=== PATIENT | female | born 1995 | race Caucasian/White ===

== ENCOUNTER → 2022-02-02 | Outpatient (CLI) | payer OTHER, SELFPAY ==
[2022-02-02 12:08] LABS: Absolute Lymphocyte Count 2.19 X10^3/uL (0.83-4.51); Absolute Neutrophil Count 5.7 X10^3/uL (2.0-7.7); Basophil# 0.02 X10^3/uL; Basophil% 0.2 % (0-1); Eosinophil# 0.06 X10^3/uL; Eosinophils% 0.7 % (0-5); Hematocrit 39.2 % (37-47); Lymphocyte # 2.19 X10^3/ul (0.83-4.51); Lymphocyte % 26.1 % (19-41); Mean Corp Hgb Conc 33.2 g/dL (32-36); Mean Corpuscular Hgb 29.4 pg (27.0-32.0); Mean Corpuscular Volume 88.7 fL (81-99); Mean Platelet Vol. 10.8 fl (6.2-12.0); Monocyte# 0.41 X10^3/uL; Monocyte% 4.9 % (0-10); NRBC Flagged by Analyzer 0 % (0-5); Neutrophil # 5.67 X10^3/uL (2.7-7.7); Neutrophil % 67.7 % (47-70); Platelet Count 235 K/mm3 (150-450); RBC Distribution Width CV 12.5 % (11.6-14.6); RBC Distribution Width SD 40.6 fl (35.1-43.9); Red Blood Count 4.42 M/mm3 (4.2-5.4); White Blood Count 8.4 K/mm3 (4.4-11.0)
[2022-02-02 15:00] LABS: HIV - WCH Non-Reactive (Nonreactive); Hepatitis B Surface Antigen Non-Reactive (Nonreactive); Hepatitis C Antibody Non-Reactive (Nonreactive); Rubella IgG Reactive (Nonreactive); Syphilis Antibodies Non-reactive
[2022-02-03 16:05] LABS: V-Zoster IgG (Immunity) 1080 index (Immune >165)
[2022-02-03 21:07] LABS: Chlamydia By Nucleic Acid AMP Negative (Negative)
[2022-02-04 11:26] LABS: Gonococcus By Nucleic Acid AMP Negative (Negative)
[2022-02-10 13:32] LABS: HPV Reflexed? NOT INDICATED
== END | disposition home or self-care (01) ==
LOC: WOBLAB 10:51
PROVIDERS: Visit Provider Obstetrics & Gynecology
DX: Z34.83 Encounter for supervision of other normal pregnancy, third trimester (principal); Z12.4 Encounter for screening for malignant neoplasm of cervix; Z11.3 Encounter for screening for infections with a predominantly sexual mode of transmission
CPT/HCPCS: 36415; 85025; 86703; 86762; 86780; 86787; 86803; 87086; 87340; 87491; 87591; 88175; G0145

== ENCOUNTER → 2022-04-29 | Outpatient (CLI) | payer OTHER, SELFPAY ==
[2022-04-29 11:13] LABS: Absolute Lymphocyte Count 1.63 X10^3/uL (0.83-4.51); Absolute Neutrophil Count 5.5 X10^3/uL (2.0-7.7); Basophil# 0.02 X10^3/uL; Basophil% 0.3 % (0-1); Eosinophil# 0.04 X10^3/uL; Eosinophils% 0.5 % (0-5); Hematocrit 35.5 % (37-47); Lymphocyte # 1.63 X10^3/ul (0.83-4.51); Lymphocyte % 21.4 % (19-41); Mean Corp Hgb Conc 33.8 g/dL (32-36); Mean Corpuscular Hgb 30.5 pg (27.0-32.0); Mean Corpuscular Volume 90.3 fL (81-99); Monocyte# 0.38 X10^3/uL; NRBC Flagged by Analyzer 0 % (0-5); Neutrophil # 5.52 X10^3/uL (2.7-7.7); Neutrophil % 72.5 % (47-70); Platelet Count 198 K/mm3 (150-450); RBC Distribution Width CV 12.6 % (11.6-14.6); RBC Distribution Width SD 41.5 fl (35.1-43.9); Red Blood Count 3.93 M/mm3 (4.2-5.4); White Blood Count 7.6 K/mm3 (4.4-11.0)
[2022-04-29 11:33] LABS: Glucose Challenge Gest 1H 50g 100 mg/dL (70-140)
== END | disposition home or self-care (01) ==
LOC: WOBLAB 09:40
PROVIDERS: Visit Provider Obstetrics & Gynecology
DX: Z34.82 Encounter for supervision of other normal pregnancy, second trimester (principal)
CPT/HCPCS: 36415; 82950; 85025

== ENCOUNTER → 2022-05-20 | Outpatient (CLI) | payer OTHER, SELFPAY | END | disposition home or self-care (01) | PROVIDERS: Visit Provider Obstetrics & Gynecology | DX: Z34.83 Encounter for supervision of other normal pregnancy, third trimester (principal) | CPT/HCPCS: 36415; 86850 ==

== ENCOUNTER 2022-07-07 17:20 | Outpatient (CLI) | payer OTHER, SELFPAY ==
[2022-07-07 17:33] VITALS: BP 120/77; PULSE 105; TEMP 36.7
[2022-07-07 17:40] VITALS: BMI 30.4
[2022-07-07] MEDS: Betamethasone/Betamethasone 30 MG/5 ML Vial 12 MG IM (18:47)
--- NOTE | 2022-07-07 19:23 | PCM.HP.BLA ---
History and Physical Date of Admission: 07/07/22 Chief complaint: Decreased movement History present illness: 26-year-old living 2 at 36 weeks and 1 day with JULIET 08/03/2022 arrives with decreased movement. Patient feels regular movements but they are less strong than previous. Denies headache, vision change, chest pain, shortness of breath, nausea vomit, right upper quadrant pain. is complicated by IUGR, history of section Obstetric history: G1: Primary section twins 37 weeks G2: Current Past medical history: None Medications: vitamin Past surgical history: section, colonoscopy Allergies: No known drug allergies Social history: Denies smoking, alcohol use, drug use Family history: Denies history DVT or PE Review of systems: Besides above pertinent positives a full review of systems was performed and found to be negative Physical exam: Vitals: Blood pressure 120/77 pulse 105 temperature 98.0 ?F General: Normal-appearing no acute distress HEENT: Normocephalic/atraumatic no cervical lymphadenopathy Cardiac/respiratory: No successor muscles, nonlabored breathing Abdomen: Soft, nontender, gravid Extremities: No peripheral edema normal peripheral pulses Psych: Normal affect and demeanor nonpressured speech Bedside ultrasound: Cephalic, ANDRZEJ subjectively within normal limits Assessment plan: 26-year-old living 2 at 36 weeks and 1 day with decreased movement with IUGR. Patient had received advice from family friend that patient needs delivered today. FOB very frustrated. Reviewed latest growth ultrasound and cord Dopplers with patient and FOB. Discussed today's discussion with MFM who reviewed the ultrasound findings. Myself and MFM agree with echo guideline recommendation for 37-week delivery with IUGR less than the 3rd percentile and elevated cord Dopplers. Educated patient and FOB on risks of early delivery and reasons for 37-week delivery. Overall FOB still unsatisfied but excepting. Discussed overnight stay with reactive NST but will do prolonged monitoring to better evaluate fetus. Celestone given today will give repeat dose tomorrow. Scheduled in office for BPP and cord Dopplers. Discussed delivery options, patient agrees to repeat section to be scheduled at 37 weeks. Reaffirmed game plan and educated on options, all questions answered
[2022-07-07 21:36] VITALS: TEMP 36.4
[2022-07-07 21:37] VITALS: BP 116/60; PULSE 96
[2022-07-08 02:29] VITALS: BP 121/64; PULSE 86; TEMP 36.3
[2022-07-08 07:43] VITALS: BP 102/65; PULSE 96
--- NOTE | 2022-07-08 07:49 | DCINST_ITS ---
Discharge Instructions Diet Discharge Diet: No restrictions Activity Discharge Activity: Return to Normal Activity, May Drive and May Shower May resume sexual activity in: No Restrictions Weight Bearing Status: Weight bearing as tolerated Dressing / Incision Call your doctor if your incision/area has: Continuous Slow Oozing and Foul Smelling Discharge Call your doctor if you observe: Fever of 101 or Higher, Shortness of breath and Chest pain Follow Up Care Please Follow Up With: Wesley Andrade MD When: scheduled for today in office Test Results: Test results from this visit will be discussed in further detail at your follow- up appointment, if applicable. Discharge Plan Admission Reason For Visit: RULE OUT LABOR Attending Provider: Wesley Andrade Disposition Patient Disposition: Home, Self Care
--- NOTE | 2022-07-08 07:50 | PCM.PN.OB ---
Subjective Subjective No overnight complaints Objective Data Objective Data Vital Signs: Vital Signs Temp Pulse BP 97.3 F L 96 102/65 07/08/22 02:29 07/08/22 07:43 07/08/22 07:43 Weight: 177 lb 11.081 oz Body Mass Index (BMI) 30.4 Physical Exam Const alert, oriented x3, no apparent distress, average body habitus, healthy appearing and well nourished HEENT normocephalic and moist oral mucous membranes Eyes PERRL Neck full ROM Resp normal respiratory effort, no retractions and no use of accessory muscles Extremity normal to inspection and full ROM Neuro moves all extremities and no focal motor deficits Psych mental status grossly normal, affect normal, speech normal and activity/motor behavior normal Assessment & Plan (1) : PLAN: Patient with overnight stay for decreased movement and IUGR. Celestone given yesterday 07/08/2022 at 1848. Overnight monitoring reassuring and reactive NST. Educated patient on findings discussed discharge home today for BPP and cord Dopplers in office. For repeat Celestone dose this evening. Reviewed plan with patient and , all questions answered. Patient scheduled for repeat section on 07/13/2022 at 37 weeks. Okay to discharge home today
[2022-07-08] MEDS: Betamethasone/Betamethasone 30 MG/5 ML Vial 12 MG IM (17:38)
== END 2022-07-08 17:40 | disposition home or self-care (01) ==
LOC: WPOUT 17:31 → WP 17:32
PROVIDERS: Referring Provider Obstetrics & Gynecology; Visit Provider Obstetrics & Gynecology
DX: O36.8130 Decreased fetal movements, third trimester, not applicable or unspecified (principal); O36.5930 Maternal care for other known or suspected poor fetal growth, third trimester, not applicable or unspecified; O34.219 Maternal care for unspecified type scar from previous cesarean delivery; Z3A.36 36 weeks gestation of pregnancy
CPT/HCPCS: 59025; 59050; 76815; 96372; J0702

== ENCOUNTER → 2022-07-08 | Outpatient (CLI) | payer OTHER, SELFPAY ==
[2022-07-08 15:15] LABS: Absolute Lymphocyte Count 2.13 X10^3/uL (0.83-4.51); Absolute Neutrophil Count 12.7 X10^3/uL (2.0-7.7); Basophil# 0.02 X10^3/uL; Basophil% 0.1 % (0-1); Eosinophil# 0.01 X10^3/uL; Eosinophils% 0.1 % (0-5); Hematocrit 37.1 % (37-47); Hemoglobin 12.5 g/dL (12.0-15.0); Lymphocyte # 2.13 X10^3/ul (0.83-4.51); Lymphocyte % 13.6 % (19-41); Mean Corp Hgb Conc 33.7 g/dL (32-36); Mean Corpuscular Hgb 30.3 pg (27.0-32.0); Mean Corpuscular Volume 89.8 fL (81-99); Mean Platelet Vol. 10.8 fl (6.2-12.0); Monocyte% 4.5 % (0-10); NRBC Flagged by Analyzer 0 % (0-5); Neutrophil # 12.73 X10^3/uL (2.7-7.7); Neutrophil % 81.1 % (47-70); Platelet Count 258 K/mm3 (150-450); RBC Distribution Width CV 12.4 % (11.6-14.6); Red Blood Count 4.13 M/mm3 (4.2-5.4); White Blood Count 15.7 K/mm3 (4.4-11.0)
[2022-07-08 16:13] LABS: Syphilis Antibodies Non-reactive
== END | disposition home or self-care (01) ==
LOC: WOBLAB 14:27
PROVIDERS: Visit Provider Obstetrics & Gynecology
DX: Z34.83 Encounter for supervision of other normal pregnancy, third trimester (principal); Z36.85 Encounter for antenatal screening for Streptococcus B
CPT/HCPCS: 36415; 85025; 86780; 87081

== ENCOUNTER 2022-07-13 09:35 | Inpatient (IN) | payer SELFPAY, OTHER ==
[2022-07-13] VITALS (19 sets, daily range): BP systolic 97–124; BP diastolic 55–73; PULSE 71–105; RESP 16; TEMP 36.2–36.9; O2SAT 98–100; BMI 30.5
--- NOTE | 2022-07-13 09:46 | PCM.HP.BLA ---
History and Physical Date of Admission: 07/13/22 Chief complaint: Repeat section IUGR History present illness: 26-year-old G2, P1 living 2 at 37 weeks and 0 days with JULIET 08/03/2022 arrives for repeat section for IUGR with elevated cord Dopplers. Denies headache, vision change, chest pain, shortness of breath, nausea vomit, right upper quadrant pain. Patient states good movement. is complicated by IUGR less than the 3rd percentile with elevated cord Dopplers, history of section, Rh- Obstetric history: G1: 37-week di/di twins primary section G2: Current Past medical history: None Medications: vitamin Allergies: No known drug allergies Past surgical history: Colonoscopy, section Family history: Denies history DVT or PE Social history: Denies smoking, alcohol use, drug use Review of systems: Besides above pertinent positives a full review of systems was performed and found to be negative Physical exam: Vitals: Pending General: Normal-appearing no acute distress HEENT: Normocephalic/atraumatic no cervical lymphadenopathy Cardiac/respiratory: No use accessory muscles, nonlabored breathing Abdomen: Soft, nontender, gravid Extremities: No peripheral edema normal peripheral pulses Psych: Normal affect normal demeanor nonpressured speech Labs: Pending Assessment and plan: 26-year-old living 2 at 37 weeks and 0 days with IUGR with elevated cord Dopplers for repeat section. Patient received Celestone at 36 weeks. Discussed case with confectionery laboratory manager fellow/resident Admit labor and delivery CEFM 2 g Ancef Anesthesia to see
[2022-07-13] MEDS: Acetaminophen 500 MG Tablet 1000 MG PO ×3 (10:19→22:17)
[2022-07-13] MEDS: Lactated Ringers 1,000 ML 999 ML IV (10:20)
[2022-07-13] MEDS: Sodium Citrate/Citric Acid 30 ML UDC PO (10:22)
[2022-07-13 10:33] LABS: Absolute Neutrophil Count 8.4 X10^3/uL (2.0-7.7); Basophil# 0.03 X10^3/uL; Basophil% 0.3 % (0-1); Eosinophil# 0.06 X10^3/uL; Eosinophils% 0.5 % (0-5); Hematocrit 37.2 % (37-47); Hemoglobin 12.7 g/dL (12.0-15.0); Lymphocyte % 20.2 % (19-41); Mean Corp Hgb Conc 34.1 g/dL (32-36); Mean Corpuscular Hgb 30.4 pg (27.0-32.0); Mean Platelet Vol. 10.4 fl (6.2-12.0); Monocyte# 0.58 X10^3/uL; Monocyte% 5.1 % (0-10); NRBC Flagged by Analyzer 0 % (0-5); Neutrophil # 8.35 X10^3/uL (2.7-7.7); Neutrophil % 73.2 % (47-70); Platelet Count 234 K/mm3 (150-450); RBC Distribution Width CV 12.6 % (11.6-14.6); RBC Distribution Width SD 40.6 fl (35.1-43.9); Red Blood Count 4.18 M/mm3 (4.2-5.4); White Blood Count 11.4 K/mm3 (4.4-11.0)
[2022-07-13] MEDS: Lactated Ringers 1,000 ML 150 ML IV (10:50)
[2022-07-13 11:23] LABS: Syphilis Antibodies Non-reactive
[2022-07-13] MEDS: Cefazolin 2 GM in 0.9% Normal Saline 100 ML IV (11:52)
--- NOTE | 2022-07-13 12:36 | OP.PCM_ITS ---
Details Operative Information Date of Procedure: 07/13/22 Pre-Operative Diagnosis: Term, IUGR, elevated cord Dopplers, history of section Post-Operative Diagnosis: Term, IUGR, elevated cord Dopplers, history of section director of accreditation #1: Abdoul More Findings Description of Procedure: Procedure: Repeat low transverse section Via Pfannenstiel incision Surgeon: Wesley Andrade MD Anesthesia: Spinal EBL: 700 cc Urine output: 200 cc IV fluids: 1000 cc Complications: None Specimen: None Findings: Female in vertex position Apgars 9/9. Normal uterus, tubes, and ovaries. Consent: Patient with history of section, term with IUGR with elevated cord Dopplers educated patient on versus section risk benefits alternatives given patient elects for repeat section Via Pfannenstiel incision. Patient understands risk of the procedure include but are not limited to visceral or vascular injury, prolonged hospitalization, blood loss and need for transfusion, reoperation. Patient state understanding and wished to proceed. All questions were answered and consent was signed. Procedure: Patient was brought back to the OR where spinal anesthesia was found to be adequate. 2 g of Ancef were given for infection prophylaxis. Patient was prepared and draped in a supine position with leftward tilt. A Pfannenstiel in cision was made at the skin with a scalpel. The incision was carried down to the fascia with a scalpel. The fascia was excised and extended laterally. Rectus muscle was dissected at the midline down to the level of the pubic symphysis. Preperitoneal fatty tissue was noted and peritoneum was entered bluntly. Peritoneum was extended superiorly and inferiorly with good visualization of bladder. Bladder blade was inserted and vesicouterine peritoneum was identified. Low transverse hysterotomy was made. Hand was placed into the incision and gentle fundal pressure was applied once the bladder blade was removed and the head was brought into the incision. Head and shoulders were delivered with ease. Cord was clamped and cut. Baby handed off to nursing. Placenta was delivered via cord traction and fundal massage. IV oxytocin was initiated in order to facilitate uterine contractions. Uterus was exteriorized and wiped out with dry laparotomy sponge in order to remove remaining placental membranes. Uterus was closed in continuous running fashion. [id number] sutures were used to achieve hemostasis. Uterus was placed back into the abdominal cavity and incision was reinspected, good hemostasis was noted. Fascia was closed in a continuous running fashion with PDS suture. Subcutaneous irrigation was performed and good hemostasis was noted. Skin was closed in a subcuticular fashion. Good hemostasis was noted. All counts were correct x2. Patient tolerated procedure well and was brought to recovery in stable condition.
[2022-07-13] MEDS: Ketorolac 30 MG/ML Syringe IV ×2 (13:04→20:02)
[2022-07-13] MEDS: Oxytocin 15 Units/NS 250ml 15 UNITS/250 ML IV.SOLN 83 UNITS IV (13:04)
--- NOTE | 2022-07-13 15:14 | NURSING ---
1400 IBCLC at bedside assisting mother with starting to pump. Patient tolerated very well, denied pain and sig other involved in the teaching. Taught sig other how to clean the pump parts after pumping and about 14ml colostrum was collected and brought to the SCN.
[2022-07-13] MEDS: Lactated Ringers 1,000 ML 100 ML IV (15:44)
[2022-07-14] MEDS: 0.9% Saline Lock 10 ML Syringe IV ×2 (00:49→06:40)
[2022-07-14] MEDS: Enoxaparin 40 MG/0.4 ML Syringe SC ×2 (00:49→22:34)
[2022-07-14] MEDS: Ketorolac 30 MG/ML Syringe IV ×2 (00:49→06:39)
[2022-07-14 00:50] VITALS: BP 116/68; PULSE 79; RESP 16; TEMP 36.7; O2SAT 96
[2022-07-14] MEDS: Acetaminophen 500 MG Tablet 1000 MG PO ×4 (04:39→22:34)
[2022-07-14 04:40] VITALS: BP 96/59; PULSE 78; RESP 16; TEMP 36.3; O2SAT 99
--- NOTE | 2022-07-14 07:31 | PN.OBGYN_ITS ---
Subjective Subjective No overnight complaints Objective Data Objective Data Vital Signs: Vital Signs Temp Pulse Resp BP Pulse Ox O2 Del Method 97.3 F L 78 16 96/59 L 99 Room Air 07/14/22 04:40 07/14/22 04:40 07/14/22 04:40 07/14/22 04:40 07/14/22 04:40 07/14/22 04:40 Oxygen Delivery Method Room Air Weight: 178 lb 2.136 oz Body Mass Index (BMI) 30.5 Intake & Output: Intake and Output for Last 24 Hours 07/12/22 07/13/22 07/14/22 23:59 23:59 23:59 Intake Total 2289.39 / 2289.39 Output Total 2800 / 2800 1500 / 1500 Balance -510.61 / -510.61 -1500 / -1500 Lab / Micro Data Result Diagrams: 07/13/22 10:15 Labs: Laboratory Results - last 24 hr 07/13/22 10:15: WBC 11.4 H, RBC 4.18 L, Hgb 12.7, Hct 37.2, MCV 89.0, MCH 30.4, MCHC 34.1, RDW Std Deviation 40.6, RDW Coeff of Archie 12.6, Plt Count 234, MPV 10 .4, Immature Gran % (Auto) 0.700, Neut % (Auto) 73.2 H, Lymph % (Auto) 20.2, Early % (Auto) 5.1, Eos % (Auto) 0.5, Baso % (Auto) 0.3, Absolute Neuts (auto) 8.4 H, Absolute Lymphs (auto) 2.30, Nucleated RBC % 0 07/13/22 10:15: Blood Type O NEGATIVE, Antibody Screen POSITIVE, Antibody Identification ANTI-D 07/13/22 10:15: Syphilis Total Ab Non-reactive 07/13/22 17:00: Screen NEGATIVE, Baby's Blood Type A POSITIVE, Baby's FLORENCE NEGATIVE Physical Exam Const alert, oriented x3, no apparent distress, average body habitus, healthy appearing and well nourished HEENT normocephalic and moist oral mucous membranes Eyes PERRL Neck full ROM Resp normal respiratory effort, no retractions and no use of accessory muscles GI GI Narrative: Soft, nontender, bandage clean dry and intact Extremity normal to inspection, full ROM and no clubbing, cyanosis or edema Neuro moves all extremities and no focal motor deficits Psych mental status grossly normal, affect normal, speech normal and activity/motor behavior normal Assessment & Plan (1) delivery delivered: PLAN: Postop day 1 status post primary section at 37 weeks for IUGR and elevated cord Dopplers. Baby in special care nursery. Breast-feeding, to see . Pain well controlled. Possibly discharge to hotel tomorrow
[2022-07-14 09:18] VITALS: BP 109/71; PULSE 80; RESP 16; TEMP 36.5; O2SAT 97
[2022-07-14] MEDS: Senna/Docusate Sodium 1 Tablet PO (10:48)
[2022-07-14] MEDS: Ibuprofen 600 MG Tablet PO ×2 (13:33→19:52)
[2022-07-14 14:00] VITALS: BP 107/64; PULSE 83; RESP 18; TEMP 36.7; O2SAT 97
[2022-07-14 14:41] LABS: Hematocrit 35.4 % (37-47); Hemoglobin 11.5 g/dL (12.0-15.0); Mean Corp Hgb Conc 32.5 g/dL (32-36); Mean Corpuscular Hgb 29.9 pg (27.0-32.0); Mean Corpuscular Volume 91.9 fL (81-99); Mean Platelet Vol. 10.3 fl (6.2-12.0); Platelet Count 251 K/mm3 (150-450); RBC Distribution Width CV 12.8 % (11.6-14.6); RBC Distribution Width SD 42.9 fl (35.1-43.9); Red Blood Count 3.85 M/mm3 (4.2-5.4); White Blood Count 12.7 K/mm3 (4.4-11.0)
[2022-07-14 19:55] VITALS: BP 102/62; PULSE 98; RESP 16; O2SAT 97
[2022-07-15] MEDS: Ibuprofen 600 MG Tablet PO ×3 (01:57→15:28)
[2022-07-15 02:00] VITALS: BP 105/62; PULSE 73; RESP 16; TEMP 36.3; O2SAT 98
[2022-07-15] MEDS: Acetaminophen 500 MG Tablet 1000 MG PO ×3 (04:42→16:43)
--- NOTE | 2022-07-15 05:34 | ED.RN ---
Around 0300, pt called and stated she had a small headache and asked if she was due for any medication. I informed the pt about the times for her meds and she was okay and stated her headache was rating around a 1 or 2 out of 10 as she was sitting in SCN. When back in room around 0440 and giving tylenol, pt was laying in bed and stated her headache was gone. at 0530, pt called back out and was sitting up right in bed and said her headache was back but only rating about a 1 out of 10. When asked, she said it does get better and go mostly away when she lays flat and this RN informed her about a spinal headache and we will monitor how it gets throughout the rest of the day and if needed, can consult anesthesia if it gets worse and intervention is needed.
--- NOTE | 2022-07-15 08:09 | PCM.DC.BLA ---
Discharge Summary Date of Admission: 07/13/22 Date of Discharge: 07/15/22 Summary: Patient arrived on 07/13/2022 for scheduled repeat section at 37 weeks for IUGR with elevated cord Dopplers. Subsequently perform repeat section on 07/13/2022. Baby to special care. Routine postoperative recovery. [facility] on [facility]. Meaningful Use Info Meaningful Use Diagnoses (Choose all that apply): None applicable Discharge Plan Admission Admit Date/Time: 07/13/22 09:35 Primary Reason for Your Visit: Repeat section Attending Provider: Wesley Andrade Instructions Additional Instructions / Restrictions: Regular diet. Okay to shower. No tub baths for 2 weeks. No intercourse for 4-6 weeks. No lifting over 25 pounds for 2 to 3 weeks. Call if fevers, chills, chest pain, shortness of breath. Follow-up 2 weeks postoperatively Discharge Orders/Prescriptions Prescriptions: New oxycodone 5 mg tablet 5 mg PO Q6H PRN (Reason: pain (scale score 7-10)) 4 Days Qty: 16 0RF Disposition Disposition (needs filled in before D/C Order can be placed): Home, Self Care
--- NOTE | 2022-07-15 08:10 | PCM.PN.OB ---
Subjective Subjective No overnight complaints. Pain well controlled Objective Data Objective Data Vital Signs: Vital Signs Temp Pulse Resp BP Pulse Ox O2 Del Method 97.4 F L 73 16 105/62 98 Room Air 07/15/22 02:00 07/15/22 02:00 07/15/22 02:00 07/15/22 02:00 07/15/22 02:00 07/15/22 02:00 Oxygen Delivery Method Room Air Weight: 178 lb 2.136 oz Body Mass Index (BMI) 30.5 Intake & Output: Intake and Output for Last 24 Hours 07/13/22 07/14/22 07/15/22 23:59 23:59 23:59 Intake Total 2289.39 / 2289.39 Output Total 2800 / 2800 1500 / 1500 Balance -510.61 / -510.61 -1500 / -1500 Lab / Micro Data Result Diagrams: 07/14/22 14:20 Labs: Laboratory Results - last 24 hr 07/14/22 14:20: WBC 12.7 H, RBC 3.85 L, Hgb 11.5 L, Hct 35.4 L, MCV 91.9, MCH 29.9, MCHC 32.5, RDW Std Deviation 42.9, RDW Coeff of Archie 12.8, Plt Count 251, MPV 10.3 Physical Exam Const alert, oriented x3, no apparent distress, average body habitus, healthy appearing and well nourished HEENT normocephalic and moist oral mucous membranes Eyes PERRL Neck full ROM Resp normal respiratory effort, no retractions and no use of accessory muscles GI GI Narrative: Soft, nontender, bandage clean dry and intact Extremity normal to inspection and full ROM Neuro moves all extremities and no focal motor deficits Psych mental status grossly normal, affect normal, speech normal and activity/motor behavior normal Assessment & Plan (1) delivery delivered: PLAN: Postop day 2 status post repeat section. Breast-feeding. Pain well controlled. Baby in special care. To discharge to hot status
[2022-07-15 09:51] VITALS: BP 106/66; PULSE 94; RESP 16; TEMP 37.2; O2SAT 97
[2022-07-15] MEDS: Senna/Docusate Sodium 1 Tablet PO (10:36)
[2022-07-15 15:20] VITALS: BP 117/68; PULSE 85; RESP 16; TEMP 36.9
[2022-07-15 19:20] VITALS: BP 110/78; PULSE 76
== END 2022-07-15 19:40 | disposition home or self-care (01) | DRG 788 ==
PROVIDERS: Admitting Provider Obstetrics & Gynecology; Visit Provider Obstetrics & Gynecology
PROC: 10D00Z1 Extraction of Products of Conception, Low, Open Approach (ICD-10-PCS; CPT 59514; principal; 2022-07-13 11:45)
DX: O34.211 Maternal care for low transverse scar from previous cesarean delivery (principal); O36.5930 Maternal care for other known or suspected poor fetal growth, third trimester, not applicable or unspecified; O26.893 Other specified pregnancy related conditions, third trimester; Z67.90 Unspecified blood type, Rh positive; Z3A.37 37 weeks gestation of pregnancy; Z37.0 Single live birth
CPT/HCPCS: 59025; 59050; 85025; 85027; 85461; 86780; 86850; 86870; 86900; 86901; 99221; J7120; A4216; G0378; J2405; J2790

== ENCOUNTER → 2022-07-29 | Outpatient (CLI) | payer OTHER, SELFPAY | END | disposition home or self-care (01) | LOC: WOBLAB 11:54 | PROVIDERS: Visit Provider Obstetrics & Gynecology | DX: N39.0 Urinary tract infection, site not specified (principal) | CPT/HCPCS: 87077; 87086; 87088; 87186 ==